=== PATIENT | male | born 1945 | race Caucasian/White ===

== ENCOUNTER 2025-04-13 12:31 | Outpatient (REF) | payer MEDICARE, SELFPAY ==
--- OUTSIDE RECORDS SUMMARY | 2025-03-27 11:15 | XMS_ITS ---
Author Organization [facility] Address [address] [place] [address] [place] [address] Care Team Providers Care Utility Maintenance Worker Name Role Phone Kartik Stern DO Primary Care Provider Unavail able Toi Mcintyre Unavailable [phone] Encounters Encounter Location Date Provider Diagnosis [facility] [address] [place] [address] [id number] 03/27/2025 Toi Mcintyre Plan Of Treatment No Information Progress Notes * Travon MONTES CDOB:[birth year] (79 yo M)Acc No.[id number]:03/27/2025 Patient: Tiny Travon ABRAHAM Provider: Reggie Mcintyre DPM :1945 A ge:79 Y S ex:Male Date:03/27/2025 Address:[address] [place], [place] [phone] Pcp:Kartik Stern DO Subjective: * Chief Complaints: * * Medical History: Objective: * Vitals: Assessment: Plan: * Treatment: * Images: * Electronic signature of [place] in MAREK Mcintyre on 04/13/2025 at 12:41 PM EDT Sign off status: Pending * Provider: Reggie Mcintyre DPM Date: 03/27/2025 Generated for Philippe blair/Ophelia/Shadiitting on: 04/13/2025 12:41 PM EDT
[2025-04-13 13:53] LABS: INR 2.75; Prothrombin Time 26.4 sec (9.0-11.6)
== END 2025-04-13 12:32 | disposition home or self-care (01) ==
LOC: LAB 12:31
PROVIDERS: PCP Family Medicine; Visit Provider Family Medicine
DX: Z79.01 Long term (current) use of anticoagulants (principal)
CPT/HCPCS: 36415; 85610